=== PATIENT | male | born 1990 | race Caucasian/White ===

== ENCOUNTER 2021-12-27 08:39 | Emergency (ER) | payer MEDICAID ==
[~2021-12-27] VITALS: Ht 167.6 cm; Wt 75.0 kg
[2021-12-27 08:50] VITALS: BP 141/72
[2021-12-27] MEDS ORDERED: TAM75 MT (10:02)
== END 2021-12-27 10:30 | disposition home or self-care (01) ==
LOC: ER 08:48
DX: U07.1 COVID-19 (principal)
CPT/HCPCS: 87426; 99283; C9803